=== PATIENT | female | born 1980 | race Caucasian/White ===

== ENCOUNTER → 2019-12-23 | Outpatient (CLI) | payer BC ==
[~2019-12-23] MED LIST: LEVO50TA PO; NIFE10CA49 PO; PREN1TAB60
== END | disposition home or self-care (01) ==
LOC: EDSTATUS 12:30 → CFH 12:34
PROVIDERS: ATTEND Obstetrics & Gynecology
DX: Z12.31 Encounter for screening mammogram for malignant neoplasm of breast (principal)
CPT/HCPCS: 76641; 77067